=== PATIENT | male | born 1990 | race Caucasian/White ===

== ENCOUNTER 2019-03-16 11:50 | Emergency (ER) | payer OTHER ==
[~2019-03-16] VITALS: Ht 157.5 cm; Wt 53.1 kg
[2019-03-16 11:57] VITALS: Ht 157.5 cm; Wt 53.1 kg
[2019-03-16 12:56] LABS: CALCIUM 9.9 mg/dL (8.5-10.1); CARBON DIOXIDE 23.5 mmol/L (21-32); CHLORIDE SERUM 102 mmol/L (98-107); CREATININE SERUM 0.7 mg/dL (0.7-1.3); GFR1 > 60 mL/min; GLUCOSE SERUM 85 mg/dL (74-106); POTASSIUM SERUM 4.8 mmol/L (3.5-5.1); SODIUM SERUM 137 mmol/L (136-145)
[2019-03-16 13:01] LABS: ALBUMIN 4.6 g/dL (3.4-5.0); ALKALINE PHOSPHATASE 95 U/L (46-116); ALT/SGPT 18 U/L (16-63); AST/SGOT 18 U/L (15-37); BILIRUBIN TOTAL 1.05 mg/dL (0.20-1.00); TOTAL PROTEIN, SERUM 7.8 g/dL (6.4-8.2)
[2019-03-16 13:12] LABS: RED CELL DISTRIBUTION WIDTH 13.3 % (11.5-14.5)
[2019-03-16 13:13] LABS: PLATELET COUNT 112 x10^3mcL (130-400)
[2019-03-16 13:17] LABS: SEGMENTED NEUTROPHILS 84 % (37-75)
[2019-03-16 13:18] LABS: ATYPICAL LYMPH 1 %; BAND NEUTROPHIL 0 % (0-10); BASOPHIL 0 % (0-2); MONOCYTE 14 % (0-7); rbc morphology (normal/abnorm) ABNORMAL (NORMAL)
[2019-03-16 13:19] LABS: PLATELET MORPHOLOGY PLATELETS DECREASED
[2019-03-16 14:08] VITALS: BP 142/89
== END 2019-03-16 14:08 | disposition home or self-care (01) ==
LOC: ED 11:50
PROVIDERS: Emergency Medicine
DX: S46.911A Strain of unspecified muscle, fascia and tendon at shoulder and upper arm level, right arm, initial encounter (principal); R07.89 Other chest pain; X50.9XXA Other and unspecified overexertion or strenuous movements or postures, initial encounter; Y93.89 Activity, other specified; Y92.89 Other specified places as the place of occurrence of the external cause; Y99.8 Other external cause status; Z98.890 Other specified postprocedural states
CPT/HCPCS: J1885; J7030; Q0092